=== PATIENT | male | born 2005 | race Two or more races ===

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

== ENCOUNTER 2023-12-09 20:54 | Emergency (ER) | payer MEDICAID ==
[~2023-12-09] VITALS: Ht 182.9 cm; Wt 138.1 kg
[2023-12-09 22:24] VITALS: BP 136/69; PULSE 73; RESP 18; TEMP 98.4; O2SAT 98
[2023-12-09] MEDS: IBUPROFEN 800 MG TAB PO ONE (22:24)
== END 2023-12-09 22:35 | disposition home or self-care (01) ==
LOC: ER 20:54
DX: M79.622 Pain in left upper arm (principal); J45.909 Unspecified asthma, uncomplicated; Z48.01 Encounter for change or removal of surgical wound dressing